=== PATIENT | male | born 1990 | race African-American/Black ===

== ENCOUNTER 2017-04-08 23:28 | Emergency (ER) | payer BC ==
[~2017-04-08] VITALS: Ht 185.4 cm; Wt 77.1 kg
[2017-04-08] MEDS ORDERED: NKM (23:42)
[2017-04-08 23:45] VITALS: BP 115/77
[2017-04-09] MEDS ORDERED: Azithromycin 250mg tab ORAL ONE
--- NOTE | 2017-04-09 00:18 | Emergency Room Report ---
History of Present Illness General Chief Complaint: Male Urogenital Problems Source: Patient Present Illness HPI this is a 26-year-old male who has a history of STD in the past. He also is sexually active with unprotected sex with 2 partners. He presents with chief complaint of dysuria and suprapubic pain for last 2 weeks. No nausea no vomiting. No discharge. No diarrhea. Denies any other complaint. Allergies: Coded Allergies: No Known Allergies (Unverified , 04/08/17) Patient History Past Medical History: see triage record, old chart reviewed Past Surgical History: none Pertinent Family History: none Social History: Denies: smoking Immunizations: other Reviewed Nursing Documentation: PMH: Agreed, PSxH: Agreed Nursing Documentation-PMH Past Medical History: No Stated History Review of Systems Eye: Denies: eye pain, blurred vision ENT: Denies: ear pain, nose congestion, throat swelling Respiratory: Denies: cough, shortness of breath Cardiovascular: Denies: chest pain, palpitations Gastrointestinal: Denies: abdominal pain, diarrhea, nausea, vomiting Genitourinary: Reports: dysuria Musculoskeletal: Denies: back pain, joint pain Skin: Denies: rash Neurological: Denies: headache, numbness Endocrine: Denies: increased thirst, increased urine Hematologic/Lymphatic: Denies: easy bruising All Other Systems: negative except mentioned in HPI Physical Exam Vital Signs Date Time Temp Pulse Resp B/P (MAP) Pulse Ox O2 Delivery O2 Flow Rate FiO2 04/08/17 23:39 98.2 69 17 115/77 100 Room Air vitals normal Sp02 EP Interpretation: reviewed, normal General Appearance: well appearing, no apparent distress, alert Head: normocephalic, atraumatic Eyes: bilateral eye PERRL, bilateral eye EOMI ENT: hearing grossly normal, normal pharynx Neck: full range of motion, supple, no meningismus Respiratory: chest non-tender, lungs clear, normal breath sounds Cardiovascular #1: regular rate, rhythm, no murmur Gastrointestinal: normal bowel sounds, non tender, no mass, no organomegaly, no bruit, non-distended Genitourinary: normal inspection, no CVA tenderness, no vertebral tenderness, penis normal, scrotum normal, other - Inguinal adenopathy. No discharge Musculoskeletal: back normal, gait/station normal, normal range of motion Psychiatric: mood/affect normal Skin: warm/dry Medical Decision Making Diagnostic Impression: Primary Impression: Urethritis ER Course Patient with urethritis. Most likely Chlamydia. Patient of Rocephin and azithromycin here. We'll discharge him. Last Vital Signs Date Time Temp Pulse Resp B/P (MAP) Pulse Ox O2 Delivery O2 Flow Rate FiO2 04/08/17 23:45 98.2 17 115/77 100 Room Air 04/08/17 23:39 69 Status: improved Disposition: HOME, SELF-CARE Condition: Stable Patient Instructions: Urethritis, Adult Additional Instructions: Have your partners is treated. Followup with your Dr. in 7 days. Recommend outpatient HIV, hepatitis, syphilis, and other STDs testing. Return if worse. JEN MACIEL M.D. Apr 09, 2017 00:18
[2017-04-09 00:26] VITALS: BP 115/77
== END 2017-04-09 00:26 | disposition home or self-care (01) ==
LOC: EMR 23:55
DX: N34.2 Other urethritis (principal)
CPT/HCPCS: 96372; 99284; J0696